=== PATIENT | female | born 1970 | race American Indian/Alaskan Native ===

== ENCOUNTER 2019-01-24 09:08 | Emergency (ER) | payer OTHER ==
[2019-01-24 09:17] VITALS: BP 133/75
[2019-01-24] MEDS ORDERED: XYLOCAINE 1% 20 mL INFILTRATI ONE (09:53)
[2019-01-24] MEDS ORDERED: BOOSTRIX IM ONE (09:54)
[2019-01-24] MEDS ORDERED: AUGMENTIN 875 MG PO ONE (09:54)
[2019-01-24] MEDS ORDERED: NORCO 5/325 PO ONE (09:54)
--- NOTE | 2019-01-24 10:56 | Emergency Department Report ---
ED Animal Bite HPI - General Chief Complaint: Animal Bite Stated Complaint: RT LEG DOG BITE/PAIN Time Seen by Provider: 01/24/19 09:53 Source: patient Mode of arrival: Ambulatory Limitations: Physical Limitation - History of Present Illness Initial Comments: Patient is a 48-year-old Female who is presenting status post dog bite. Patient states she was out looking for her dog and her neighbor's dog that her on the posterior right lower extremity. Patient states his dog is well known to her and she sees it almost daily. She is unsure why the dog divider. Patient states she has burning pain in the area of the lacerations is 8 out of 10 in severity. It hurts worse with walking. - Related Data Previous Rx's Medication Instructions Recorded Last Taken Type Amoxicillin/Potassium Clav 1 each PO BID #14 tablet 01/24/19 Unknown Rx [Augmentin 875-125 Tablet] Ibuprofen [Motrin 600 MG tab] 600 mg PO Q8H PRN #20 tablet 01/24/19 Unknown Rx Allergies Allergy/AdvReac Type Severity Reaction Status Date / Time codeine Allergy Unknown Verified 01/24/19 09:10 ED Review of Systems ROS: Stated complaint: RT LEG DOG BITE/PAIN Other details as noted in HPI Comment: All other systems reviewed and negative ED Past Medical Hx - Past Medical History Additional medical history: MS - Social History Smoking Status: Never Smoker Substance Use Type: None - Medications Home Medications: Home Medications Medication Instructions Recorded Confirmed Last Taken Type Amoxicillin/Potassium Clav 1 each PO BID #14 tablet 01/24/19 Unknown Rx [Augmentin 875-125 Tablet] Ibuprofen [Motrin 600 MG tab] 600 mg PO Q8H PRN #20 tablet 01/24/19 Unknown Rx ED Physical Exam - General Limitations: Physical Limitation General appearance: alert, in no apparent distress - Head Head exam: Present: atraumatic, normocephalic - Eye Eye exam: Present: normal appearance - ENT ENT exam: Present: mucous membranes moist - Neck Neck exam: Present: normal inspection - Respiratory Respiratory exam: Absent: respiratory distress - Extremities Exam Extremities exam: Present: normal inspection - Back Exam Back exam: Present: normal inspection - Neurological Exam Neurological exam: Present: alert, oriented X3 - Psychiatric Psychiatric exam: Present: normal affect, normal mood - Skin Skin exam: Present: warm, dry, intact, normal color. Absent: rash - Expanded Skin Exam Expanded 1 - 3 cm laceration of the posterior right leg. Bleeding has been controlled. ED Course Vital Signs 01/24/19 01/24/19 09:14 10:13 Temperature 98.0 F Pulse Rate 98 H Respiratory 20 20 Rate Blood Pressure 133/75 O2 Sat by Pulse 100 Oximetry - Laceration /Wound Repair Right Posterior Distal Calf Wound Location: lower extremity Wound Length (cm): 3 Wound's Depth, Shape: linear Wound Explored: no foreign body removed Irrigated w/ Saline (ccs): 300 Betadine Prep?: Yes Anesthesia: 1% Lidocaine Volume Anesthetic (ccs): 10 Suture Size/Type: 3:0 Number of Sutures: 3 Layer Closure?: No Sterile Dressing Applied?: Yes Progress: Loose closure secondary to this being from a bite Critical care attestation.: If time is entered above; I have spent that time in minutes in the direct care of this critically ill patient, excluding procedure time. ED Disposition Clinical Impression: Laceration, Dog bite Disposition: DC-01 TO HOME OR SELFCARE Is pt being admited?: No Does the pt Need Aspirin: No Condition: Stable Instructions: Animal Bite (ED), Suture Care (ED), Laceration (ED) Referrals: ANITA FOFANA MD [Primary Care Provider] - 7-10 days (for suture removal ) Time of Disposition: 10:55
== END 2019-01-24 11:15 | disposition home or self-care (01) ==
LOC: ED 09:08
DX: S81.811A Laceration without foreign body, right lower leg, initial encounter (principal); Z88.6 Allergy status to analgesic agent; W54.0XXA Bitten by dog, initial encounter; Y93.89 Activity, other specified; Y92.89 Other specified places as the place of occurrence of the external cause; Y99.8 Other external cause status
CPT/HCPCS: 90471; 90715; 99282